=== PATIENT | female | born 1990 ===

== ENCOUNTER → 2018-10-22 19:34 | Outpatient (REF) | payer OTHER, SELFPAY ==
[2018-10-22 20:16] LABS: Add Manual Diff / Slide Review NO; Basophils Absolute Auto 100 /uL (0-100); Eosinophils Absolute Auto 200 /uL (0-450); Eosinophils Percent Auto 4.2 % (2-4); Hematocrit 39.9 % (36-46); Hemoglobin 13.1 g/dL (12.0-16.0); Lymphocytes Absolute Auto 1800 /uL (1100-4500); Lymphocytes Percent Auto 34.3 % (25-40); Mean Corpuscular HGB Conc 32.8 % (30-36); Mean Corpuscular Hemoglobin 26.3 PG (26-34); Monocytes Absolute Auto 400 /uL (0-900); Monocytes Percent Auto 7.1 % (3-14); Neutrophils Absolute Auto 2700 /uL (1500-7000); Neutrophils Percent Auto 53.4 % (50-75); Platelet Count 242 X10^3/uL (150-400); Red Blood Cell Count 4.99 X10^6/uL (4.0-5.2); Red Cell Distribution Width 13.9 % (11.6-14.8); White Blood Cell Count 5.1 X10^3/uL (4.5-11.0)
[2018-10-22 20:21] LABS: Alanine Aminotransferase 16 IU/L (9-52); Albumin 4.3 g/dL (3.5-5.0); Albumin Globulin Ratio 1.5 (1.0-2.8); Alkaline Phosphatase 69 U/L (38-126); Aspartate Aminotransferase 20 IU/L (14-36); Bilirubin Total 0.5 mg/dL (0.2-1.3); Blood Urea Nitrogen 15 mg/dL (7-17); Calcium 8.9 mg/dL (8.4-10.2); Carbon Dioxide 24 mmol/L (22-32); Chloride 104 mmol/L (98-107); Cholesterol 175 mg/dL (140-199); Estimated Glomerular Filt Rate > 60.0 mL/min (>60); Globulin 2.8 g/dL (1.7-4.1); Glucose 88 mg/dL (70-100); HDL Cholesterol 57 mg/dL (40-60); HEMOLYSIS < 15 (0-50); LDL Cholesterol Calculated 110 mg/dL (<100); Potassium 4.3 mmol/L (3.4-5.1); Sodium 139 mmol/L (137-145); Total Protein 7.1 g/dL (6.3-8.2); Triglycerides 41 mg/dL (35-150)
[2018-10-22 20:32] LABS: Free T3, Triiodothyronine Free 4.37 pg/mL (2.77-5.27); Triiodothryronine T3 Uptake 32.8 % (23.5-40.5)
[2018-10-22 20:45] LABS: Thyroid Stimulating Hormone 1.94 uIU/mL (0.47-4.68)
[2018-10-26 15:10] LABS: Anti Thyroglobulin Antibody < 1 IU/mL (< 2); Thyroid Peroxidase Antibodies < 1 IU/mL (< 9)
[2018-10-29 09:11] LABS: Triiodothyronine T3 Total 116 ng/dL (76-181)
== END ==
LOC: LAB 19:34
PROVIDERS: Visit Provider Naturopath
DX: Z00.00 Encounter for general adult medical examination without abnormal findings (principal)
CPT/HCPCS: 36415; 80053; 80061; 84439; 84443; 84479; 84480; 84481; 85025; 86376; 86800; 87624; 88142